=== PATIENT | female | born 1980 | race Caucasian/White ===

== ENCOUNTER 2016-05-30 08:53 | Emergency (ER) | payer OTHER ==
[2016-05-30] MEDS ORDERED: LORazepam 1 MG TAB PO STA (09:31)
[2016-05-30 10:03] VITALS: BP 108/60; RESP 14
--- NOTE | 2016-05-30 10:46 | ED ---
Skin/Abscess/FB HPI - General Chief complaint: Skin/Abscess/Foreign Body Stated complaint: inflamed cyst Time Seen by Provider: 05/30/16 09:27 Source: patient Mode of arrival: ambulatory Limitations: no limitations - History of Present Illness Initial comments: 36-year-old male presents emergency Department chief complaint buttocks abscess. Patient states she's had several past. Patient was originally scheduled for surgery though she refuses. Patient states that she's not having from a few years. Patient states that it started over the last few days and is red and tender on the right buttocks. Patient denies fever, chills. Patient offers no other complaints. - Related Data Home Medications Medication Instructions Recorded Confirmed Thyroid,Pork [[place] Thyroid] 60 mg PO DAILY 07/18/15 07/18/15 Previous Rx's Medication Instructions Recorded HYDROcodone/APAP 5-325MG [Otho 5] 1 each PO Q4HR PRN #20 tab 07/18/15 Naproxen [Naprosyn] 500 mg PO Q12HR #24 tab 07/18/15 HYDROcodone/APAP 7.5-325MG [Otho 1 tab PO Q6HR PRN #20 tab 05/30/16 7.5-325] Sulfamethox-Tmp 800-160Mg [Bactrim 1 each PO Q12HR #20 tab 05/30/16 Ds] Allergies Allergy/AdvReac Type Severity Reaction Status Date / Time No Known Allergies Allergy Verified 05/30/16 09:04 Review of Systems ROS Statement: Those systems with pertinent positive or pertinent negative responses have been documented in the HPI. ROS Other: All systems not noted in ROS Statement are negative. Past Medical History Past Medical History: Thyroid Disorder Additional Past Medical History / Comment(s): chronic leg pain History of Any Multi-Drug Resistant Organisms: None Reported Past Surgical History: Appendectomy Past Psychological History: Anxiety Smoking Status: Current every day smoker Past Alcohol Use History: Occasional Past Drug Use History: None Reported General Exam Limitations: no limitations General appearance: alert, in no apparent distress Head exam: Present: atraumatic, normocephalic, normal inspection Respiratory exam: Present: normal lung sounds bilaterally. Absent: respiratory distress, wheezes, rales, rhonchi, stridor Cardiovascular Exam: Present: regular rate, normal rhythm, normal heart sounds. Absent: systolic murmur, diastolic murmur, rubs, gallop, clicks GI/Abdominal exam: Present: soft, normal bowel sounds. Absent: distended, tenderness, guarding, rebound, rigid Rectal exam: Present: other (There is a 3 center abscess the right buttocks noted) Course Vital Signs 05/30/16 05/30/16 09:02 09:59 Temperature 98.9 F Pulse Rate 108 H 99 Respiratory 20 14 Rate Blood Pressure 115/73 108/60 O2 Sat by Pulse 99 100 Oximetry Procedures - Incision & Drainage Consent Obtained: verbal consent Indication: Abscess Site: buttock Size (cm): 3 Anesthetic Used: lidocaine 1%, without epi Amount (mLs): 6 I&D Cleaning Method: Chloroprep Scalpel Used: #11 I&D Drainage Obtained: Pus, Blood Culture Obtained?: Yes Patient Tolerated Procedure: well, no complications Medical Decision Making - Medical Decision Making 28-year-old female presented for abscess. This was opened and drained. Patient we discharged she has follow-up with Dr. Hancock as needed Disposition Clinical Impression: Abscess of buttock, right Disposition: HOME SELF-CARE Condition: Stable Instructions: Abscess Incision and Drainage (ED) Additional Instructions: Please return to the Emergency Department if symptoms worsen or any other concerns. Prescriptions: HYDROcodone/APAP 7.5-325MG [Otho 7.5-325] 1 tab PO Q6HR PRN #20 tab PRN Reason: Pain Sulfamethox-Tmp 800-160Mg [Bactrim Ds] 1 each PO Q12HR #20 tab Referrals: Freddy Orellana MD [Primary Care Provider] - 1-2 days Time of Disposition: 10:46
[2016-05-30 11:11] VITALS: PULSE 92; TEMP 98.3
== END 2016-05-30 11:12 | disposition home or self-care (01) ==
LOC: EC 08:53
DX: L02.31 Cutaneous abscess of buttock (principal); F41.9 Anxiety disorder, unspecified; E07.9 Disorder of thyroid, unspecified; F17.200 Nicotine dependence, unspecified, uncomplicated; Z79.899 Other long term (current) drug therapy
CPT/HCPCS: 10060; 87070; 87205; 99283

== ENCOUNTER → 2018-09-05 | Outpatient (CLI) | payer OTHER ==
--- NOTE | 2018-09-07 09:29 | MM ---
Reason for exam: screening (asymptomatic). History: Family history of breast cancer in mother at age 58. Physical Findings: A clinical breast exam by your physician is recommended on an annual basis and results should be correlated with mammographic findings. MG Screening Mammo w CAD Bilateral CC and MLO view(s) were taken. No prior studies available for comparison. The breast tissue is extremely dense which could obscure a lesion on mammography. Finding #1: There are 12 mm equal density (isodense), obscured oval masses in both breasts. Finding #2: There are typically benign calcifications in both breasts. 7mm obscrued density right upper outer quadrant. ASSESSMENT: Incomplete: need additional imaging evaluation, BI-RAD 0 RECOMMENDATION: Special view mammogram of both breasts. If lesion persists on supplemental views, image directed ultrasound is recommended. [facility] will attempt to contact patient to return for supplemental views and ultrasound if indicated.
== END | disposition home or self-care (01) ==
LOC: RADMAMWWP 09:19
PROVIDERS: ATTEND Obstetrics & Gynecology
DX: Z12.31 Encounter for screening mammogram for malignant neoplasm of breast (principal); Z80.3 Family history of malignant neoplasm of breast
CPT/HCPCS: 77067

== ENCOUNTER → 2018-09-15 | Outpatient (CLI) | payer OTHER ==
--- NOTE | 2018-09-16 09:15 | MM ---
Reason for exam: additional evaluation requested from abnormal screening. Last mammogram was performed less than 1 month ago. History: Family history of breast cancer in mother at age 58. Physical Findings: Nurse did not find any significant physical abnormalities on exam. MG 3D Work Up W/Cad BUBBA Bilateral spot compression CC, spot compression MLO, and LM view(s) were taken. Prior study comparison: September 05, 2018, bilateral MG screening mammo w CAD. The breast tissue is extremely dense which could obscure a lesion on mammography. Finding: There is a 7 mm equal density (isodense), circumscribed oval mass located 2 cm from the nipple in the upper outer quadrant, anterior position of the left breast on 3D. There is no discrete abnormality in the right breast on compression. These results were verbally communicated with the patient and result sheet given to the patient on 09/15/18. ASSESSMENT: Incomplete: need additional imaging evaluation, BI-RAD 0 RECOMMENDATION: Ultrasound of the left breast.
--- NOTE | 2018-09-16 09:21 | USB ---
Reason for exam: additional evaluation requested from abnormal screening. History: Family history of breast cancer in mother at age 58. US Breast Workup Limited LT Left limited breast ultrasound including focal area of concern, retroareolar and axilla demonstrates a 0.5 x 0.3 x 0.4cm cystic lesion at 2 o'clock, a 0.5 x 0.3 x 0.5cm oval, cystic lesion at 2 o'clock, a 0.6 x 0.5 x 0.5cm oval, cystic lesion at 2 o'clock, a 1.1 x 0.4 x 1.2cm oval, solid lesion at 3 o'clock for which a biopsy is recommended and an adjacent 1.2 x 0.8 x 1.2cm oval, solid lesion at 4 o'clock for which a biopsy is recommended. These results were verbally communicated with the patient and result sheet given to the patient on 09/15/18. ASSESSMENT: Suspicious, BI-RAD 4 RECOMMENDATION: Ultrasound core biopsy of the left breast. (x 2) Called Dr. Hylton with mammographic findings. Biopsy scheduled for 10/04/18 at 12:20. PRELIMINARY REPORT CALLED AND FAXED TO DR. HYLTON ON 09/16/18.
== END | disposition home or self-care (01) ==
LOC: RADMAMWWP 08:53
PROVIDERS: ATTEND Obstetrics & Gynecology
DX: R92.8 Other abnormal and inconclusive findings on diagnostic imaging of breast (principal)
CPT/HCPCS: 77062; 77066

== ENCOUNTER → 2018-10-04 | Day surgery (SDC) | payer OTHER ==
[2018-10-04 11:46] VITALS: RESP 16; TEMP 98.7; BMI 48.8
--- NOTE | 2018-10-04 13:34 | USB ---
EXAMINATION TYPE: US biopsy breast VAD LT, US biopsy breast add'l VAD LT, MG diagnostic mammo LT wo CAD DATE OF EXAM: 10/04/2018 CLINICAL HISTORY: R92.8 abnormal mammogram. Abnormal ultrasound. Family history of breast cancer in mom. TECHNIQUE: Ultrasound guided core biopsy of left breast 2 sites with clip placement and follow-up diagnostic two-view mammogram.. COMPARISON: Ultrasound left breast and mammogram September 15, 2018. FINDINGS: The procedure of ultrasound guided fine needle aspiration and/or core biopsy was explained to the patient. Benefits, alternatives, and risks were discussed. An informed consent was then obtained. The patient was placed in supine positioning for imaging and for the procedure. Preprocedure ultrasound redemonstrates oval heterogeneous hypoechoic 1.1 cm lesion 3:00 position left breast and slightly more lobulated hypoechoic roughly 1.2 cm lesion 4:00 position left breast. The overlying skin was prepped and draped in usual sterile fashion. Lidocaine was used as anesthetic into the skin. Lidocaine with epinephrine was used as anesthetic into the deeper tissue up to area of concern in the left breast. A jose f was made with surgical scalpel. Under ultrasound guidance, aspiration was unsuccessful in the 3:00 lesion utilizing 18-gauge needle. Under ultrasound guidance, a 12-gauge vacuum assisted biopsy gun device was used to obtain 2 core samples at both sites. Following this, a biopsy clip was left in lesion at both sites. The patient tolerated the procedure well without any immediate complication. The patient was kept in the radiology department for short stay after the procedure and then discharged home in stable condition. Postprocedure mammogram shows successful deployment of both clips, the more anterior clip appears to correspond to the area of original mammogram concern. This is the 3:00 ribbon clip. IMPRESSION: Successful, uncomplicated ultrasound guided core biopsy of 2 areas of concern in the left breast, full pathology results to follow. Low index of suspicion for 3:00 anterior lesion. Low to intermediate index of suspicion for 4:00 lesion. Pathology Results: Benign A. LEFT BREAST, SITE A 3:00, ULTRASOUND GUIDED CORE BIOPSY: Fibroadenoma. B. 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 Recommendation Follow up mammogram of the left breast in 6 months. TRENA
[2018-10-04 13:39] VITALS: BP 98/63; PULSE 78
== END | disposition home or self-care (01) ==
LOC: RADUSWWP 11:22
PROVIDERS: ATTEND Surgery
DX: D24.2 Benign neoplasm of left breast (principal); Z80.3 Family history of malignant neoplasm of breast
CPT/HCPCS: 19084; 77065; 88305

== ENCOUNTER → 2019-04-10 | Outpatient (CLI) | payer OTHER ==
--- NOTE | 2019-04-10 10:03 | MM ---
Reason for exam: follow-up at short interval from prior study. Last mammogram was performed 6 months ago. History: Family history of breast cancer in mother at age 58. Benign US biopsy breast VAD LT of the left breast, October 04, 2018. Benign US biopsy breast add'l VAD LT of the left breast, October 04, 2018. Physical Findings: Nurse Summary: 0.5cm nodule in the right breast at 3 o'clock (nurse TM). MG 3D Diag Mammo W/Cad LT CC and MLO view(s) were taken of the left breast. Prior study comparison: October 04, 2018, left breast MG diagnostic mammo LT wo CAD. September 15, 2018, bilateral MG 3d work up w/cad BUBBA. The breast tissue is extremely dense which could obscure a lesion on mammography. Previous mammotome biopsy in the left breast x 2 from recent biopsies. Central posterior asymmetric density on Cc becomes less defined on spot 3D and can be reassessed in 6 months. These results were verbally communicated with the patient and result sheet given to the patient on 04/10/19. ASSESSMENT: Incomplete: need additional imaging evaluation, BI-RAD 0 RECOMMENDATION: Ultrasound of the left breast. (3 o'clock palpable)
--- NOTE | 2019-04-10 10:06 | USB ---
Reason for exam: additional evaluation requested from abnormal screening. History: Family history of breast cancer in mother at age 58. Benign US biopsy breast VAD LT of the left breast, October 04, 2018. Benign US biopsy breast add'l VAD LT of the left breast, October 04, 2018. US Breast Limited LT Left limited breast ultrasound including focal area of concern, retroareolar and axilla demonstrates a 5 x 4 x 3mm oval, cystic lesion at 12 o'clock, a 5 x 4 x 5mm oval, cystic lesion at 1 o'clock, a 9 x 5 x 12mm oval, solid, hypoechoic lesion at 3 o'clock BB previous biopsy site and a 13 x 8 x 13mm oval, solid, hypoechoic lesion at 4 o'clock previous biopsy site. Scanned 12-4 o'clock. 6 month follow up mammogram on the left breast the asymmetric density on the CC view. These results were verbally communicated with the patient and result sheet given to the patient on 04/10/19. ASSESSMENT: Probably benign, BI-RAD 3 RECOMMENDATION: Follow-up diagnostic mammogram of both breasts in 6 months.
== END | disposition home or self-care (01) ==
LOC: RADMAMWWP 08:45
PROVIDERS: ATTEND Surgery
DX: R92.8 Other abnormal and inconclusive findings on diagnostic imaging of breast (principal)
CPT/HCPCS: 77061; 77065

== ENCOUNTER → 2019-10-10 | Outpatient (CLI) | payer BC ==
--- NOTE | 2019-10-10 10:16 | MM ---
Reason for exam: follow-up at short interval from prior study. Last mammogram was performed 6 months ago. History: Family history of breast cancer in mother at age 58. Benign US biopsy breast VAD LT of the left breast, October 04, 2018. Benign US biopsy breast add'l VAD LT of the left breast, October 04, 2018. Physical Findings: Nurse did not find any significant physical abnormalities on exam. MG 3D Diag Mammo W/Cad BUBBA Bilateral CC and MLO view(s) were taken. Prior study comparison: April 10, 2019, left breast MG 3d diag mammo w/cad LT. October 04, 2018, left breast MG diagnostic mammo LT wo CAD. The breast tissue is extremely dense which could obscure a lesion on mammography. There are benign appearing round calcifications bilaterally, greater in the left breast. Previous mammotome biopsy in the left breast x 2. There is chronic nodularity in the left breast at clips. There is no new dominant lesion. There is no discrete abnormality. These results were verbally communicated with the patient and result sheet given to the patient on 10/10/19. ASSESSMENT: Benign, BI-RAD 2 RECOMMENDATION: Routine screening mammogram of both breasts in 1 year. (Some consider annual ultrasound surveillance for patient dense breast tissue).
== END ==
LOC: RADMAMWWP 09:30
PROVIDERS: ATTEND Surgery
DX: R92.8 Other abnormal and inconclusive findings on diagnostic imaging of breast (principal)
CPT/HCPCS: 77062; 77066

== ENCOUNTER → 2021-11-03 | Outpatient (CLI) | payer BC ==
[2021-11-03 14:28] LABS: Chol/HDL Ratio 3.22 Ratio; LDL Cholesterol,Calculated 105.3 mg/dL (0.0-131.0); VLDL Calculation 11.88 mg/dL (5.00-40.00)
[2021-11-03 14:29] LABS: HCT 42.5 % (37.2-46.3); HGB 13.1 g/dL (12.0-15.0); MCH 29.8 pg (27.0-32.0); MCHC 30.8 g/dL (32.0-37.0); MCV 96.6 fL (80.0-97.0); Mean Platelet Volume 9.9 fL (9.5-12.2); NRBC Per 100 WBC 0 /100 WBCS (0.0-0.0); Platelet Count 458 X 10*3/uL (140-440); RDW 13.3 % (11.5-14.5); WBC 7.81 X 10*3/uL (4.50-10.00)
--- NOTE | 2021-11-04 11:32 | MM ---
Reason for Exam: Screening (asymptomatic). Last mammogram was performed 2 year(s) and 1 month(s) ago. Patient History: Menarche at age 9. First Full-Term at age 18. Patient has history of breast feeding. 10/04/2018, Benign Core Biopsy on the left side. 10/04/2018, Benign Core Biopsy on the left side. Mother had breast cancer, age 58. Last menstrual period: 10/23/2021 Risk Values: Ellie 5 year model risk: 4.0%. NCI Lifetime model risk: 29.5%. Prior Study Comparison: 10/04/2018 Left Diagnostic Mammogram, [facility]. 04/10/2019 Left Diagnostic Mammogram, [facility]. 10/10/2019 Bilateral Diagnostic Mammogram, [facility]. Tissue Density: The breast tissue is extremely dense which could obscure a lesion on mammography. Findings: Analyzed By CAD. There is no suspicious group of microcalcifications or new suspicious mass in either breast. Biopsy clip markers are noted on the left. Benign calcifications are seen. Overall Assessment: Benign, BI-RAD 2 Management: Screening Mammogram of both breasts in 1 year. A clinical breast exam by your physician is recommended on an annual basis and results should be correlated with mammographic findings. Electronically signed and approved by: Wally Agosto M.D. Radiologis
== END | disposition home or self-care (01) ==
LOC: RADMAMWWP 08:48
PROVIDERS: ATTEND Obstetrics & Gynecology
DX: Z12.31 Encounter for screening mammogram for malignant neoplasm of breast (principal); Z80.3 Family history of malignant neoplasm of breast; Z13.0 Encounter for screening for diseases of the blood and blood-forming organs and certain disorders involving the immune mechanism
CPT/HCPCS: 77067; 80061; 85027

== ENCOUNTER → 2023-01-20 | Outpatient (CLI) | payer BC ==
--- NOTE | 2023-01-21 20:33 | MM ---
Reason for Exam: Screening (asymptomatic). Last mammogram was performed 1 year(s) and 3 month(s) ago. Patient History: Menarche at age 9. First Full-Term at age 18. Premenopausal. Patient has history of breast feeding. 10/04/2018, Benign Core Biopsy on the left side. 10/04/2018, Benign Core Biopsy on the left side. Mother had breast cancer, age 58. Last menstrual period: 01/01/2023 Risk Values: Ellie 5 year model risk: 4.6%. NCI Lifetime model risk: 28.6%. Prior Study Comparison: 04/10/2019 Left Diagnostic Mammogram, [facility]. 10/10/2019 Bilateral Diagnostic Mammogram, [facility]. 11/03/2021 Bilateral MG screening mammo w CAD, [facility]. Tissue Density: The breast tissue is heterogeneously dense. This may lower the sensitivity of mammography. Findings: Analyzed By CAD. 2 microclips in the left breast from prior biopsies. There is a palpable marker overlying the left breast for which further workup is advised. On the right, centrally at 12:00 position, focal asymmetry appears more defined. Superimposition shadow is possible but further evaluation is recommended. Overall Assessment: Incomplete: need additional imaging evaluation, BI-RAD 0 Management: Special View Mammogram of both breasts. Diagnostic Breast Ultrasound of both breasts. On the left, 3-D lateral view followed by whole breast ultrasound with particular attention to the palpable site. On the right, spot 3-D CC, spot 3-D MLO, and 3-D lateral views followed by ultrasound whole breast. [facility] will attempt to contact patient to return for supplemental views and ultrasound if indicated. Electronically signed and approved by: Samina Zavala M.D. Radiologist
== END | disposition home or self-care (01) ==
LOC: RADMAMWWP 11:12
PROVIDERS: ATTEND Obstetrics & Gynecology
DX: Z12.31 Encounter for screening mammogram for malignant neoplasm of breast (principal); Z80.3 Family history of malignant neoplasm of breast
CPT/HCPCS: 77067

== ENCOUNTER → 2023-01-28 | Outpatient (CLI) | payer BC ==
--- NOTE | 2023-01-28 14:55 | MM ---
Reason for Exam: Additional evaluation requested from abnormal screening. Last screening mammogram was performed less than 1 month ago. Patient History: Menarche at age 9. First Full-Term at age 18. Premenopausal. Patient has history of breast feeding. 10/04/2018, Benign Core Biopsy on the left side. 10/04/2018, Benign Core Biopsy on the left side. Mother had breast cancer, age 58. Risk Values: Ellie 5 year model risk: 4.6%. NCI Lifetime model risk: 28.6%. Prior Study Comparison: 11/03/2021 Bilateral MG screening mammo w CAD, [facility]. 01/20/2023 Bilateral MG screening mammo w CAD, [facility]. Tissue Density: The breast tissue is heterogeneously dense. This may lower the sensitivity of mammography. Findings: Analyzed By CAD. The questioned central focal asymmetry on the right does not clearly persist on additional views. There is chronic nodularity on the left with clips from previous biopsies. Palpable marker overlies the superior aspect of the left breast. No discrete underlying abnormality is seen. Ultrasound evaluation recommended especially given patient's increased lifetime risk score. Overall Assessment: Incomplete: need additional imaging evaluation, BI-RAD 0 Management: Diagnostic Breast Ultrasound of both breasts. Electronically signed and approved by: Samina Zavala M.D. Radiologist
--- NOTE | 2023-01-28 15:21 | USB ---
Reason for Exam: Additional evaluation requested from abnormal screening. Patient History: Menarche at age 9. First Full-Term at age 18. Premenopausal. Patient has history of breast feeding. 10/04/2018, Benign Core Biopsy on the left side. 10/04/2018, Benign Core Biopsy on the left side. Mother had breast cancer, age 58. Risk Values: Ellie 5 year model risk: 4.6%. NCI Lifetime model risk: 28.6%. Technique: Method: Whole Breast Handheld. Prior Study Comparison: 10/10/2019 Bilateral Diagnostic Mammogram, [facility]. 11/03/2021 Bilateral MG screening mammo w CAD, [facility]. 01/20/2023 Bilateral MG screening mammo w CAD, [facility]. Findings: The whole breast of both breasts, the axilla of both breasts and the retroareolar of both breasts were scanned. A complete US of all four quadrants of the bilateral breasts, axilla, and retro-areolar region were reviewed. No solid or cystic masses are identified. On the right, multiple scattered small cysts are present, largest measuring up to 7 mm. Dense tissues are present throughout. No suspicious solid or cystic lesion or axillary lymphadenopathy. On the left, the previous biopsy sites are redemonstrated characterized by oval hypoechoic masses measuring 9 mm and 1.1 cm (smaller compared to 1.2 cm and 1.3 cm respectively previously). We note a clip within each mass from previous biopsy. Additional scattered small cysts are present throughout the lung with dense tissues. No suspicious solid or cystic lesion or axillary lymphadenopathy. No abnormality at the patient's 11:00 palpable site. Overall Assessment: Benign, BI-RAD 2 Management: Screening Mammogram of both breasts in 1 year. 1. Note patient's increased five-year Ellie score as well as significantly increased lifetime risk score approaching nearly 30%. The patient may qualify for alternating screening with mammogram and breast MRI. 2. Further clinical management of any suspicious palpable areas. 3. Patient should continue monthly self breast exams Results were given to the patient verbally at the time of exam. Electronically signed and approved by: Samina Zavala M.D. Radiologist
== END | disposition home or self-care (01) ==
LOC: RADMAMWWP 13:38
PROVIDERS: ATTEND Obstetrics & Gynecology
DX: R92.333 Mammographic heterogeneous density, bilateral breasts (principal); Z80.3 Family history of malignant neoplasm of breast
CPT/HCPCS: 77062; 77066

== ENCOUNTER → 2024-02-09 | Outpatient (CLI) | payer BC ==
--- NOTE | 2024-02-09 11:11 | MM ---
Reason for Exam: Screening (asymptomatic). Last screening mammogram was performed 12 month(s) ago. Patient History: Menarche at age 9. First Full-Term at age 18. Premenopausal. Patient has history of breast feeding. 10/04/2018, Benign Core Biopsy on the left side. 10/04/2018, Benign Core Biopsy on the left side. Mother had breast cancer, age 58. Risk Values: Ellie 5 year model risk: 4.3%. NCI Lifetime model risk: 28.0%. Prior Study Comparison: 11/03/2021 Bilateral MG screening mammo w CAD, [facility]. 01/20/2023 Bilateral MG screening mammo w CAD, [facility]. 01/28/2023 Bilateral MG 3D work up w/cad BUBBA, [facility]. Tissue Density: The breasts are heterogeneously dense, which may obscure small masses. Findings: Analyzed By CAD. There is no suspicious group of microcalcifications or new suspicious mass in either breast. Overall Assessment: Benign, BI-RAD 2 Management: Screening Mammogram of both breasts in 1 year. . Patient should continue monthly self-breast exams. A clinical breast exam by your physician is recommended on an annual basis. This exam should not preclude additional follow-up of suspicious palpable abnormalities. Note on Ellie scores and lifetime risk: 1. A Ellie score greater than 3% is considered moderate risk. If this is the case, consider specialist referral to assess eligibility for a risk reducing agent. 2. If overall lifetime risk for the development of breast cancer is 20% or higher, the patient may qualify for future screening with alternating mammogram and breast MRI. [facility], , 02/09/2024 11:08 AM. Electronically signed and approved by: Yoandy Dai M.D. Radiologis
== END | disposition home or self-care (01) ==
LOC: RADMAMWWP 08:56
PROVIDERS: ATTEND Family Medicine
CPT/HCPCS: 77063; 77067

== ENCOUNTER → 2024-08-07 | Outpatient (CLI) | payer BC ==
--- NOTE | 2024-08-08 07:32 | US ---
EXAMINATION TYPE: US thyroid st tissue head/neck DATE OF EXAM: 08/07/2024 COMPARISON: NONE CLINICAL INDICATION: Female, 44 years old with history of E04.1 THYROID NODULE; PCP felt lump at righ t neck, Hx thyroid meds 20+ years TECHNIQUE: Grayscale and color Doppler imaging of the thyroid gland. FINDINGS: GLAND SIZE: Right Lobe: 2.6x0.8x0.9 cm Overall Parenchyma: heterogeneous Left Lobe: 2.3x0.9x1.4 cm Overall Parenchyma: heterogeneous Isthmus Thickness: 0.2 cm NODULES RIGHT: # of nodules measured on right: 0 LEFT: # of nodules measured on left: 1 1. 1.1 X 0.5 x 0.5 cm, mid mid, solid or almost completely solid, hypoechoic nodule, which is wider than tall, with smooth margins, without echogenic foci. TR 4. ISTHMUS: # of nodules measured in the isthmus: 0 Bilateral neck scanned, no evidence of lymphadenopathy. lymph node on right neck measures: 1.8x0.4x1.2cm atrophic thyroid gland, difficult to delineate borders IMPRESSION: 1. Atrophic thyroid gland with left thyroid lobe 1.1 cm TR 4 nodule. 2. Benign-appearing prominent right neck lymph node. Highest TI-RADS level nodule reported: ACR TI-RADS LEVEL: TI-RADS 4 - Moderately Suspicious: Follow if > 1 cm, FNA if > 1.5 cm [facility], , 08/08/2024 7:29 AM
== END | disposition home or self-care (01) ==
LOC: RADUSWWP 15:54
PROVIDERS: ATTEND Family Medicine
DX: E04.1 Nontoxic single thyroid nodule (principal); E03.4 Atrophy of thyroid (acquired)
CPT/HCPCS: 76536